=== PATIENT | female | born 1990 | race African-American/Black ===

== ENCOUNTER 2018-04-07 14:13 | Emergency (ER) | payer SELFPAY ==
[2018-04-07 15:14] LABS: #Monocytes 0.7 thou/uL (0.11-0.59); #Neutrophils 15.4 thou/uL (1.40-6.50); %Basophils 0.1 % (0.0-1.0); %Eosinophils 0.1 % (0.0-10.0); %Lymphocytes 5.7 % (21.0-51.0); %Neutrophils 90.1 % (42.0-75.0); Hemoglobin 11.4 g/dL (12.0-16.0); Mean Corpuscular HGB CONC 34.9 g/dL (32.0-36.0); Mean Corpuscular Hemoglobin 29.9 pg (27.0-31.0); Mean Corpuscular Volume 85.5 fL (78.0-98.0); Mean Platelet Volume 8.2 fL (7.4-10.4); Platelet Count 322 thou/uL (130-400); RBC Distribution Width 14.1 % (11.5-14.5); Red Blood Cell (RBC) Count 3.83 mill/uL (4.20-5.40); White Blood Cell (WBC) Count 17.1 thou/uL (4.8-10.8)
[2018-04-07 15:45] LABS: Bilirubin Negative (Negative); Blood, Urine Large (Negative); Clarity CLOUDY (Clear); Glucose, Urine (Dipstick) Negative (Negative); Leukocyte Moderate (Negative); Nitrite Negative (Negative); Protein, Urine (Dipstick) 100 mg/dL (Neg-Trace); Specific Gravity, Urine 1.017 (1.002-1.036)
[2018-04-07 15:47] LABS: Bacteria/HPF None Seen HPF (None Seen); Hyaline Casts/LPF 0-3 HYALINE CAST LPF (0-3 Hyaline); Pathc Cast-AUWi Flag 0.24 (0-2.49); RBC/HPF GREATER THAN 50-TNTC HPF (0-3); Yeast-AUWi Flag 24.9 (0-25.0)
[2018-04-07 15:49] LABS: ALT (SGPT) 44 U/L (8-55); AST (SGOT) 34 U/L (5-34); Albumin 3.8 g/dL (3.5-5.0); Alkaline Phosphatase 96 U/L (40-150); Anion Gap 12 mmol/L (10-20); BUN (Urea Nitrogen) 8 mg/dL (7.0-18.7); Bilirubin, Total 1.1 mg/dL (0.2-1.2); Calc. Creatinine Clearance 0 mL/min (70-130); Carbon Dioxide 31 mmol/L (22-29); Chloride 96 mmol/L (98-107); Estimated GFR-MDRD Greater than 90; Globulin 3.6 g/dL (2.4-3.5); Glucose 96 mg/dL (70-105); Protein, Total 7.4 g/dL (6.0-8.3); Sodium 136 mmol/L (136-145)
[2018-04-07 15:51] LABS: Potassium 2.5 mmol/L (3.5-5.1)
[2018-04-07] MEDS ORDERED: Potassium Chloride 20 MEQ TAB ONE (17:02)
--- NOTE | 2018-04-07 17:50 | ULT ---
PELVIC ULTRASOUND: 04/07/18 COMPARISON: None. HISTORY: 27-year-old female with vaginal bleeding and positive test. TECHNIQUE: Multiplanar nava scale sonographic imaging of the pelvis is obtained with transabdominal and endovagi nal imaging. Ovaries are assessed with color flow and spectral analysis. FINDINGS: The ovaries are only visualized on the transabdominal imaging. Right ovary measures 3.7 x 2.0 cm and demonstrates normal blood flow without evidence for mass. Left ovary measures 4.4 x 2.5 cm and demons trates normal blood flow without evidence for mass. There is no significant free fluid in the pelvis. No intrauterine gestational sac is seen. The endometrial stripe is markedly thickened and markedly he terogeneous measuring 3.2 cm in transverse dimension, abnormally thickened. There is fluid in the lower uterine segment. IMPRESSION: Heterogeneous and markedly thickened endometrium with no intrauterine gestational sac. Given history of positive test and bleeding, findings are suspicious for spontaneous . Sonographi petar occult ectopic or even an early are possibilities. Correlation with quantit ative beta HCG at this time and in 48 hours is advised. POS: ZEV
== END 2018-04-07 18:06 | disposition home or self-care (01) ==
LOC: ERS 14:13
DX: O03.9 Complete or unspecified spontaneous abortion without complication (principal)
CPT/HCPCS: 36415; 76856; 80053; 81003; 81015; 84702; 85025; 86900; 86901; 88305